=== PATIENT | male | born 1955 | race Caucasian/White ===

== ENCOUNTER → 2018-11-04 | Outpatient (CLI) | payer OTHER ==
--- NOTE | 2018-11-05 13:28 | PCVCIMAG ---
APPROVED REPORT Study performed: 11/04/2018 16:15:22 Exam: Stress Echocardiogram Indication: Hyperlipidemia, Aortic insufficiency Patient Location: Echo lab Stress Nurse: Lana Licea RN Status: routine Ht: 5 ft 8 in HR: 67 bpm BP: 104/70 mmHg Rhythm: NSR Medical History Medical History: Hyperlipidemia, TIA, Aortic insufficiency, TIA, chest pain Procedure The patient underwent an Exercise Stress Test using the John Protocol. Blood pressure, heart rate, and EKG were monitored. An Echocardiogram was performed by systems test technician in four stages in quad fashion. At peak stress, four selected images were obtained and placed side by side with resting images for comparison. Stress Test Details Stress Test: Exercise stress testing was performed using a John protocol. HR Resting HR: 67 bpmMax Heart Rate (APMHR): 156 bpm Max HR Achieved: 130 bpmTarget HR (85% APMHR): 132 bpm % of APMHR: 83 Recovery HR: 83 bpm HR response to stress: Normal HR response to stress BP Resting BP: 104/70 mmHg Max BP: 168/70 mmHg Recovery BP: 116/66 mmHg BP response to stress: Normal blood pressure response to stress. ECG Resting ECG: Sinus Rhythm Stress ECG: Sinus Rhythm Recovery ECG: Sinus Rhythm Clinical Reason for Termination: Maximal effort Exercise duration: 10 min 01 sec Highest Stage Achieved: Stage 4: 4.2 mph at 16% grade. Exercise capacity: 13.40 METs Overall Exercise Capacity for Age: Normal Pre-Stress Echo The resting Echocardiogram showed normal left ventricular contractility with an estimated Ejection Fraction of about 55-60%. Normal wall motion in all segments on baseline images. Post-Stress Echo The stress Echocardiogram showed normal left ventricular contractility with an estimated Ejection Fraction of about 60-65%. Normal augmentation of wall motion in all segments on post stress images. Clinical No clinical or ECG evidence for ischemia. Conclusion Clinical Response: Non-ischemic Exercise Capacity: Average Stress ECG Response: Non-ischemic Stress Echo Images: Non-ischemic The left ventricle is normal in size and wall thickness in both the rest and stress images. Mild aortic insufficency is noted. Ascending Aorta is dilated measuring up to 4.5cm. Other Information Study Quality: Good <Conclusion> The left ventricle is normal in size and wall thickness in both the rest and stress images. Mild aortic insufficency is noted. Ascending Aorta is dilated measuring up to 4.5cm.
== END | disposition home or self-care (01) ==
LOC: PCVCIMAG 16:00
PROVIDERS: ATTEND Internal Medicine Cardiovascular Disease
DX: I35.1 Nonrheumatic aortic (valve) insufficiency (principal); R07.9 Chest pain, unspecified; G45.9 Transient cerebral ischemic attack, unspecified; E78.5 Hyperlipidemia, unspecified
CPT/HCPCS: 93325; 93351